=== PATIENT | male | born 1985 | race Caucasian/White ===

== ENCOUNTER 2017-02-26 09:01 | Emergency (ER) | payer SELFPAY ==
[2017-02-26 09:21] VITALS: BP 149/101
--- NOTE | 2017-02-26 10:05 | EDM.PDOC ---
ED [facility] Behavioral Health - General Chief Complaint: Behavioral/Psych Stated Complaint: MENTAL HEALTH EVAL Time Seen by Provider: 02/26/17 09:26 Source of Information: Reports: Patient Exam Limitations: Reports: No limitations - History of Present Illness INITIAL COMMENTS - FREE TEXT/NARRATIVE: The patient presents with depression. He has had depression for years. In the past, he used zoloft. That did not help. Things are getting worse. He is not sleeping or eating. He has some racing thoughts. He is arguing with his more. He is scheduled to see some one at [facility] in a couple weeks. He is wanting something to help until then. He has no homicidal thoughts. He has no suicidal thoughts. He has no health problems. Onset of Symptoms: Reports: gradual Duration of Symptoms: Reports: Week(s): Severity: moderate Context, Behavioral Health: Reports: living situation, school/work, family dynamics Associated Symptoms: Reports: depression. Denies: homicidal thoughts - Related Data Allergies Allergy/AdvReac Type Severity Reaction Status Date / Time No Known Allergies Allergy Verified 02/26/17 09:21 Home Medications: Home Meds Mirtazapine [Remeron] 15 mg PO BEDTIME #30 tablet 02/26/17 [Rx] Past Medical History Psychiatric History: Reports: Depression Social & Family History - Tobacco Use Smoking Status *Q: Current Every Day Smoker Years of Tobacco use: 10 Packs/Tins Daily: 1 Used Tobacco, but Quit: No - Caffeine Use Caffeine Use: Reports: None - Recreational Drug Use Recreational Drug Use: No ED ROS GENERAL - Review of Systems Review Of Systems: See Below Constitutional: Reports: no symptoms HEENT: Reports: No symptoms Respiratory: Reports: No Symptoms Cardiovascular: Reports: No symptoms Endocrine: Reports: no symptoms GI/Abdominal: Reports: No symptoms : Reports: no symptoms Musculoskeletal: Reports: no symptoms Skin: Reports: no symptoms Neurological: Reports: No Symptoms Psychiatric: Reports: Depression ED EXAM, BEHAVIORAL HEALTH - Physical Exam Exam: See Below Exam Limited By: No limitations General Appearance: alert, no apparent distress Ears: normal external exam Nose: normal inspection Head: atraumatic, normocephalic Neck: normal inspection Respiratory/Chest: no respiratory distress, lungs clear, normal breath sounds Cardiovascular: regular rate, rhythm, no edema, no murmur GI/Abdominal: soft, non tender, no organomegaly Extremities: normal inspection Neurological: alert, no motor/sensory deficits, oriented x 3 COURSE, BEHAVIORAL HEALTH COMP - Course Vital Signs: Last Vital Signs Temp 97.6 F 02/26/17 09:18 Pulse 95 02/26/17 09:18 Resp 16 02/26/17 09:18 BP 149/101 H 02/26/17 09:18 Pulse Ox 96 02/26/17 09:18 Re-Assessment/Re-Exam: The patient is having some trouble sleeping. I will try some remeron. Departure - Departure Time of Disposition: 10:05 Disposition: Home, Self-Care 01 Condition: good Clinical Impression: Depressive disorder Prescriptions: Mirtazapine [Remeron] 15 mg PO BEDTIME #30 tablet Referrals: Margarita Leslie PA [Physician [facility]] - 1 Week Forms: ED Department Discharge Additional Instructions: Take the remeron at night before bed. This should help you sleep. Please follow up with [facility] and with Margarita Leslie or please return if you are worse.
== END 2017-02-26 10:15 | disposition home or self-care (01) ==
LOC: JD.ED 09:01
DX: F32.9 Major depressive disorder, single episode, unspecified (principal); F17.210 Nicotine dependence, cigarettes, uncomplicated
CPT/HCPCS: 99283; 99284

== ENCOUNTER 2018-12-27 08:15 | Emergency (ER) | payer OTHER ==
[2018-12-27 08:39] VITALS: BP 152/91
--- NOTE | 2018-12-27 09:29 | EDM.PDOC ---
ED HPI GENERAL MEDICAL PROBLEM - General Chief Complaint: Lower Extremity Injury/Pain Stated Complaint: GOUT FLARE UP LT FOOT Time Seen by Provider: 12/27/18 08:41 Source of Information: Reports: Patient History Limitations: Reports: No Limitations - History of Present Illness INITIAL COMMENTS - FREE TEXT/NARRATIVE: The patient presents with left foot pain. He has a history of gout and he has been having pain to the left foot over the 3rd to 5th toes. He has some redness to that area of the foot. He denies any injury to his foot. He has no fever or chills. He denies chest pain, shortness of breath, abdominal pain, nausea or vomiting Onset: Gradual Duration: Week(s): (3) Location: Reports: Lower Extremity, Left (foot) Quality: Reports: Sharp Severity: Moderate Improves with: Reports: Immobilization Worsens with: Reports: Movement Context: Denies: Trauma Associated Symptoms: Reports: No Other Symptoms Left Feet Pain Score (Numeric/FACES): 10 - Related Data Allergies Allergy/AdvReac Type Severity Reaction Status Date / Time No Known Allergies Allergy Verified 12/27/18 08:31 Home Meds: Home Meds Allopurinol [Zyloprim] 100 mg PO DAILY #30 tab 12/27/18 [Rx] Cephalexin [Keflex] 500 mg PO QID #40 capsule 12/27/18 [Rx] Hydrocodone/Acetaminophen [Hydrocodon-Acetaminophen 5-325] 1 - 2 each PO Q6HR PRN #10 tablet 12/27/18 [Rx] Indomethacin [Indomethacin ER] 75 mg PO DAILY PRN #20 capsule.er 12/27/18 [Rx] Past Medical History Psychiatric History: Reports: Depression Endocrine/Metabolic History: Reports: Obesity/BMI 30+ Other Endocrine/Metabolic History: gout Social & Family History - Tobacco Use Smoking Status *Q: Never Smoker Second Hand Smoke Exposure: No - Caffeine Use Caffeine Use: Reports: Coffee - Recreational Drug Use Recreational Drug Use: No Review of Systems - Review of Systems Review Of Systems: See Below Constitutional: Reports: No Symptoms Eyes: Reports: No Symptoms Ears: Reports: No Symptoms Nose: Reports: No Symptoms Mouth/Throat: Reports: No Symptoms Respiratory: Reports: No Symptoms Cardiovascular: Reports: No Symptoms GI/Abdominal: Reports: No Symptoms Genitourinary: Reports: No Symptoms Musculoskeletal: Reports: Other (Left foot pain and redness) ED EXAM, GENERAL - Physical Exam Exam: See Below Exam Limited By: No Limitations General Appearance: Alert, No Apparent Distress Ears: Normal External Exam Nose: Normal Inspection Head: Atraumatic, Normocephalic Neck: Normal Inspection Respiratory/Chest: No Respiratory Distress, Lungs Clear, Normal Breath Sounds Cardiovascular: Regular Rate, Rhythm, No Edema, No Murmur GI/Abdominal: Soft, Non-Tender, No Organomegaly, No Mass Extremities: Other (erythema and pain upon palpation to the left foot at the distal 4th and 3rd metatarsals with erythema extendind into the 4th and 3rd toes. Good sensation distally and capillary refill.) Course - Vital Signs Last Recorded V/S: Last Vital Signs Temp 98.4 F 12/27/18 08:34 Pulse 73 12/27/18 08:34 Resp 13 12/27/18 08:34 BP 152/91 H 12/27/18 08:34 Pulse Ox 97 12/27/18 08:34 - Orders/Labs/Meds Labs: Laboratory Tests 12/27/18 12/27/18 12/27/18 Range/Units 09:11 09:11 09:11 WBC 10.24 H (4.23-9.07) K/mm3 RBC 5.58 (4.63-6.08) M/mm3 Hgb 16.9 (13.7-17.5) gm/L Hct 50.2 (40.1-51.0) % MCV 90.0 (79.0-92.2) fl MCH 30.3 (25.7-32.2) pg MCHC 33.7 (32.2-35.5) g/dl RDW Std Deviation 44.0 H (35.1-43.9) fL Plt Count 223 (163-337) K/mm3 MPV 8.9 L (9.4-12.3) fl Sodium 135 L (136-145) mEq/L Potassium 4.8 (3.5-5.1) mEq/L Chloride 100 (98-107) mEq/L Carbon Dioxide 26 (21-32) mEq/L Anion Gap 13.8 (5-15) BUN 11 (7-18) mg/dL Creatinine 1.2 (0.7-1.3) mg/dL Est Cr Clr Drug Dosing 102.69 mL/min Estimated GFR (MDRD) > 60 (>60) mL/min BUN/Creatinine Ratio 9.2 L (14-18) Glucose 98 (74-106) mg/dL Hemoglobin A1c 5.20 (4.50-6.20) % Uric Acid 7.7 H (3.5-7.2) mg/dL Calcium 9.1 (8.5-10.1) mg/dL - Re-Assessments/Exams Free Text/Narrative Re-Assessment/Exam: 12/27/18 09:29 There is a possibility that this is a flair up of gout but I feel it more likely cellulitis to the foot and toes. The patient is not diabetic. I will get some labs. 12/27/18 10:00 His WBC was slightly elevated at 10.24. His uric acid was elevated at 7.7. Her glucose was totally normal at 98 and his Hgb A1C was normal at 5.2. I will get him on some indomethacin, keflex and something more for pain. He was also interested in getting on something to prevent that flairs. I will start him on some allupironal. Departure - Departure Time of Disposition: 10:05 Disposition: Home, Self-Care 01 Condition: Good Clinical Impression: Gout flare Qualifiers: Gout site: foot Gout etiology: other secondary cause Laterality: left Qualified Code(s): M10.472 - Other secondary gout, left ankle and foot Cellulitis Qualifiers: Site of cellulitis: extremity Site of cellulitis of extremity: lower extremity Laterality: left Qualified Code(s): L03.116 - Cellulitis of left lower limb - Discharge Information *PRESCRIPTION DRUG MONITORING PROGRAM REVIEWED*: No *COPY OF PRESCRIPTION DRUG MONITORING REPORT IN PATIENT MALINDA: No Prescriptions: Hydrocodone/Acetaminophen [Hydrocodon-Acetaminophen 5-325] 1 - 2 each PO Q6HR PRN #10 tablet PRN Reason: Pain Allopurinol [Zyloprim] 100 mg PO DAILY #30 tab Cephalexin [Keflex] 500 mg PO QID #40 capsule Indomethacin [Indomethacin ER] 75 mg PO DAILY PRN #20 capsule.er PRN Reason: Pain Referrals: PCP,None [Primary Care Provider] - Ayo Camarillo II, DPM [Physician] - 1 Week Forms: ED Department Discharge Additional Instructions: Take the medication as prescribed. Soak your foot in warm soapy water 2 times per day for 5 days. Follow up with Dr Camarillo in about a week. Please return if you are worse.
[2018-12-27 09:35] LABS: HEMOGLOBIN A1C 5.2 % (4.50-6.20)
== END 2018-12-27 10:29 | disposition home or self-care (01) ==
LOC: JD.ED 08:15
DX: L03.116 Cellulitis of left lower limb (principal); M10.472 Other secondary gout, left ankle and foot; E66.9 Obesity, unspecified
CPT/HCPCS: 36415; 80048; 83036; 84550; 85027; 99283

== ENCOUNTER 2022-04-06 22:47 | Emergency (ER) | payer SELFPAY ==
[2022-04-06] MEDS ORDERED: Sodium Chloride 0.9% 10 ML Syringe FLUSH PRN (23:14)
[2022-04-06] MEDS ORDERED: Sodium Chloride 0.9% 1,000 ML IV SCH (23:15)
[2022-04-06 23:16] VITALS: BP 133/94; PULSE 92
[2022-04-07 00:07] LABS: ESTIMATED GFR > 60 mL/min (>60)
[2022-04-07] MEDS ORDERED: Cephalexin 500 MG Cap PO ONE (00:53)
== END 2022-04-07 01:09 | disposition home or self-care (01) ==
LOC: JD.ED 22:47
DX: L03.311 Cellulitis of abdominal wall (principal); I10 Essential (primary) hypertension; M10.9 Gout, unspecified; E66.9 Obesity, unspecified; Z68.43 Body mass index [BMI] 50.0-59.9, adult; Z20.822 Contact with and (suspected) exposure to COVID-19; Z79.899 Other long term (current) drug therapy
CPT/HCPCS: 36415; 80053; 80307; 83690; 85025; 86140; 87635; 99283; A9270; 99284; U0002

== ENCOUNTER 2022-05-08 00:57 | Emergency (ER) | payer SELFPAY ==
[2022-05-08 01:25] VITALS: PULSE 106
[2022-05-08] MEDS ORDERED: Aspirin 81 MG Tab.Chew PO ONE (01:28)
[2022-05-08] MEDS: Nitroglycerin 0.4 MG Tab.SL SL PRN ×3 (01:47→02:11)
[2022-05-08] MEDS ORDERED: Iopamidol 755 Mg/ML 100 ML Bottle IVPUSH ONE ×2 (02:08→02:51)
[2022-05-08] MEDS ORDERED: Sodium Chloride 0.9% 10 ML Syringe FLUSH PRN (02:08)
[2022-05-08 02:11] VITALS: BP 110/77
[2022-05-08] MEDS ORDERED: Sodium Chloride 0.9% 100 ML IV SCH (02:15)
[2022-05-08] MEDS ORDERED: Iopamidol 755 MG/ML 50 ML Bottle IVPUSH ONE (02:17)
[2022-05-08] MEDS ORDERED: Morphine 4 MG/ML Syringe IVPUSH ONE (02:54)
[2022-05-08] MEDS ORDERED: Oxymetazoline 0.05% Nasal Spray 30 ML Bottle NAS STA (04:14)
== END 2022-05-08 06:10 | disposition home or self-care (01) ==
LOC: JD.ED 00:57
DX: R07.89 Other chest pain (principal); I10 Essential (primary) hypertension; M10.9 Gout, unspecified; E66.9 Obesity, unspecified; Z68.30 Body mass index [BMI] 30.0-30.9, adult; Z79.899 Other long term (current) drug therapy
CPT/HCPCS: 36415; 71045; 71275; 80053; 83735; 83880; 84484; 85025; 85610; 87635; 93005; 96374; 99285; A9270; J2270; J3490; Q9967; 93010; 99284; U0002

== ENCOUNTER 2022-08-28 08:20 | Emergency (ER) | payer BC ==
[2022-08-28 08:32] VITALS: PULSE 111
[2022-08-28 08:33] VITALS: BP 133/92
[2022-08-28 10:19] LABS: CORONAVIRUS COVID-19 NAA NEGATIVE (NEGATIVE)
[2022-08-28] MEDS ORDERED: cefTRIAXone 1 GM, Lidocaine 1% 2.1 ML IM ONE ×2 (11:20)
== END 2022-08-28 11:40 | disposition home or self-care (01) ==
LOC: JD.ED 08:20
DX: J40 Bronchitis, not specified as acute or chronic (principal); R60.0 Localized edema; I10 Essential (primary) hypertension; E66.9 Obesity, unspecified; Z68.43 Body mass index [BMI] 50.0-59.9, adult; Z79.899 Other long term (current) drug therapy; Z79.84 Long term (current) use of oral hypoglycemic drugs; Z20.822 Contact with and (suspected) exposure to COVID-19
CPT/HCPCS: 0241U; 36415; 71045; 80053; 83880; 84484; 85025; 86140; 93005; 96372; 99285; J0696

== ENCOUNTER 2022-09-01 18:12 | Emergency (ER) | payer BC ==
[2022-09-01 20:25] VITALS: BP 143/94; PULSE 89
== END 2022-09-01 20:26 | disposition home or self-care (01) ==
LOC: JD.ED 18:12
DX: I87.2 Venous insufficiency (chronic) (peripheral) (principal); I10 Essential (primary) hypertension; E66.9 Obesity, unspecified; Z68.43 Body mass index [BMI] 50.0-59.9, adult; Z79.899 Other long term (current) drug therapy; Z87.891 Personal history of nicotine dependence
CPT/HCPCS: 99283